=== PATIENT | female | born 1930 | race Asian ===

== ENCOUNTER 2018-03-31 22:05 | Inpatient (IN) | payer MEDICARE, OTHER ==
[~2018-03-31] VITALS: Ht 137.2 cm; Wt 49.4 kg
[~2018-03-31 22:05] MED LIST: DONE10TA8 PO; INDA2.5 PO; MEBROFENIN TC99M/MCL ISOTOPE 1 EA INJ INJ ONE; NIFE10 PO; OS500 PO; RANI150T7 PO; SIMV-260 PO; SITA25 PO
[2018-03-31] MEDS ORDERED: MIRT15 PO (22:41)
[2018-03-31 22:43] LABS: GLUCOSE,POINT OF CARE 199 MG/DL (70-110)
[2018-04-01 00:44] LABS: BASOPHILS % (AUTO) 0.3 % (0.0-2.0); EOSINOPHILS % (AUTO) 0 % (1.0-6.0); HEMATOCRIT 34.5 % (36-46); HEMOGLOBIN 11.4 g/dL (12.0-16.0); LYMPHOCYTES % (AUTO) 10.8 % (22.0-44.0); MEAN CORPUSCULAR HEMOGLOBIN 27.4 pg (26.0-34.0); MEAN CORPUSCULAR HGB CONC 32.9 G/dL (31.0-37.0); MEAN CORPUSCULAR VOLUME 83 fL (80-100); MONOCYTES # (AUTO) 0.2 K/uL (0.1-1.0); MONOCYTES % (AUTO) 2.3 % (2.0-9.0); NEUTROPHILS # (AUTO) 8.2 K/uL (1.8-7.7); PLATELET COUNT (AUTO) 236 K/uL (150-450); RED BLOOD CELL COUNT(AUTO) 4.15 MIL/uL (4.00-5.20); RED CELL DISTRIBUTION WIDTH 14.6 % (11.5-14.5)
[2018-04-01 00:46] LABS: NEUTROPHILS % (AUTO) 86.6 % (40.0-70.0)
[2018-04-01 00:55] LABS: CALCIUM, TOTAL 8.8 mg/dL (8.8-10.5); CREATININE 1.77 mg/dL (0.60-1.30); POTASSIUM 4.1 mmol/L (3.5-5.1)
[2018-04-01 01:01] LABS: ALBUMIN 3.9 g/dL (3.4-5.0); BILIRUBIN,TOTAL 0.4 mg/dL (0.1-1.0); TOTAL PROTEIN, SERUM 8.5 g/dL (6.4-8.2)
[2018-04-01] MEDS ORDERED: MAGNESIUM SULFATE 4 GM/WATER 100 ML IV PRN (04:30)
[2018-04-01] MEDS ORDERED: MAGNESIUM HYDROXIDE SUSPENSION 30 ML UDCUP PO PRN (04:30)
[2018-04-01] MEDS ORDERED: MAGNESIUM OXIDE 400 MG TABLET PO PRN (04:30)
[2018-04-01] MEDS ORDERED: DEXTROSE 50%-WATER 25 GM/50 ML SYRINGE IVP PRN ×2 (04:30→16:15)
[2018-04-01] MEDS ORDERED: BISACODYL 10 MG RECTAL RECTAL SUPPOSITORY PR PRN (04:30)
[2018-04-01] MEDS ORDERED: IPRATROPIUM BROMIDE 0.5 MG/2.5 ML NEB SOLUTION NEB PRN (04:30)
[2018-04-01] MEDS ORDERED: ZOLPIDEM TARTRATE 5 MG TABLET PO PRN (04:30)
[2018-04-01] MEDS ORDERED: INSULIN LISPRO 100 UNITS/ML SQ PRN ×2 (04:30→16:15)
[2018-04-01] MEDS ORDERED: HYDROCODONE/ACETAMINOPHEN 5-325 MG TABLET PO PRN (04:30)
[2018-04-01] MEDS ORDERED: MAGNESIUM SULFATE 2 GM/WATER 50 ML IV PRN (04:30)
[2018-04-01] MEDS ORDERED: ALBUTEROL SULFATE 2.5 MG/0.5 ML NEB SOLUTION NEB PRN (04:30)
[2018-04-01] MEDS ORDERED: POTASSIUM CHLORIDE 20 MEQ ER TABLET PO PRN (04:30)
[2018-04-01] MEDS ORDERED: MORPHINE SULFATE 4 MG/ML SYRINGE IVP PRN (04:30)
[2018-04-01] MEDS: SODIUM CHLORIDE 0.9% 1,000 ML IV SCH ×2 (04:36→15:29)
[2018-04-01] MEDS: ACETAMINOPHEN 325 MG TABLET PO PRN (05:04)
[2018-04-01] MEDS ORDERED: ONDANSETRON HCL 4 MG/2 ML VIAL IVP PRN (05:45)
[2018-04-01] MEDS ORDERED: HydrALAZINE HCL 20 MG/ML VIAL IVP PRN (05:45)
[2018-04-01] MEDS ORDERED: MORPHINE SULFATE 2 MG/ML SYRINGE IVP PRN (05:45)
[2018-04-01] MEDS ORDERED: HEPARIN SODIUM,PORCINE 5,000 UNITS/ML VIAL SQ SCH (08:00)
[2018-04-01] MEDS ORDERED: NIFEdipine 60 MG ER TABLET PO ONE (08:30)
[2018-04-01] MEDS ORDERED: PANTOPRAZOLE SODIUM 40 MG/VIAL IVP SCH (09:00)
[2018-04-01] MEDS ORDERED: NIFEdipine 10 MG CAPSULE PO SCH (09:00)
[2018-04-01] MEDS: HEPARIN SODIUM,PORCINE 5,000 UNITS/ML VIAL SQ SCH ×2 (09:01→20:41)
[2018-04-01] MEDS: RANITIDINE HCL 150 MG TABLET PO SCH ×2 (09:02→20:39)
[2018-04-01] MEDS: CALCIUM OYSTER SHELL 500 MG TABLET PO SCH (09:02)
[2018-04-01 09:18] LABS: GLUCOSE,POINT OF CARE 114 MG/DL (70-110)
[2018-04-01 10:16] LABS: BASOPHILS % (AUTO) 0.5 % (0.0-2.0); EOSINOPHILS % (AUTO) 0 % (1.0-6.0); HEMATOCRIT 35.6 % (36-46); HEMOGLOBIN 11.7 g/dL (12.0-16.0); LYMPHOCYTES # (AUTO) 2.4 K/uL (1.0-4.8); LYMPHOCYTES % (AUTO) 19.5 % (22.0-44.0); MEAN CORPUSCULAR HEMOGLOBIN 27.3 pg (26.0-34.0); MEAN CORPUSCULAR HGB CONC 32.9 G/dL (31.0-37.0); MEAN CORPUSCULAR VOLUME 83 fL (80-100); MONOCYTES # (AUTO) 1.1 K/uL (0.1-1.0); MONOCYTES % (AUTO) 8.7 % (2.0-9.0); NEUTROPHILS # (AUTO) 8.6 K/uL (1.8-7.7); NEUTROPHILS % (AUTO) 71.3 % (40.0-70.0); PLATELET COUNT (AUTO) 229 K/uL (150-450); RED CELL DISTRIBUTION WIDTH 14.4 % (11.5-14.5)
[2018-04-01 10:42] LABS: ALBUMIN 3.3 g/dL (3.4-5.0); BILIRUBIN,TOTAL 0.9 mg/dL (0.1-1.0); CALCIUM, TOTAL 8.8 mg/dL (8.8-10.5); CREATININE 1.36 mg/dL (0.60-1.30); POTASSIUM 3.6 mmol/L (3.5-5.1); TOTAL PROTEIN, SERUM 7.6 g/dL (6.4-8.2)
[2018-04-01 11:04] LABS: MAGNESIUM 2.3 mg/dL (1.80-2.40); THYROID STIMULATING HORMONE 0.57 uIU/mL (0.36-3.74)
[2018-04-01 13:08] LABS: GLUCOSE,POINT OF CARE 106 MG/DL (70-110)
[2018-04-01] MEDS ORDERED: NIFE60TA71 PO (16:13)
[2018-04-01] MEDS ORDERED: NIFE30TA5 PO (16:13)
[2018-04-01 17:53] LABS: GLUCOMETER DEV NAME(LOC) 5N 1P; GLUCOSE,POINT OF CARE 124 MG/DL (70-110)
[2018-04-01 19:40] VITALS: BP_SYST 103; BP_SYST 145; BP_DIAS 57; BP_DIAS 60
[2018-04-01] MEDS: MIRTAZAPINE 15 MG TABLET PO SCH (20:39)
[2018-04-01] MEDS: SIMVASTATIN 20 MG TABLET PO SCH (20:40)
[2018-04-01] MEDS ORDERED: INDAPAMIDE 2.5 MG TAB PO SCH (21:00)
[2018-04-02] VITALS (7 sets, daily range): BP systolic 125–150; BP diastolic 52–99
[2018-04-02] MEDS: SODIUM CHLORIDE 0.9% 1,000 ML IV SCH ×2 (05:57→10:16)
[2018-04-02 06:42] LABS: BASOPHILS % (AUTO) 0.1 % (0.0-2.0); EOSINOPHILS % (AUTO) 0 % (1.0-6.0); HEMATOCRIT 36.2 % (36-46); HEMOGLOBIN 11.9 g/dL (12.0-16.0); LYMPHOCYTES # (AUTO) 0.6 K/uL (1.0-4.8); LYMPHOCYTES % (AUTO) 5.4 % (22.0-44.0); MEAN CORPUSCULAR HEMOGLOBIN 27.5 pg (26.0-34.0); MEAN CORPUSCULAR HGB CONC 32.8 G/dL (31.0-37.0); MEAN CORPUSCULAR VOLUME 84 fL (80-100); MONOCYTES # (AUTO) 0.7 K/uL (0.1-1.0); MONOCYTES % (AUTO) 6.3 % (2.0-9.0); NEUTROPHILS # (AUTO) 10.4 K/uL (1.8-7.7); PLATELET COUNT (AUTO) 210 K/uL (150-450); RED BLOOD CELL COUNT(AUTO) 4.32 MIL/uL (4.00-5.20); RED CELL DISTRIBUTION WIDTH 14.3 % (11.5-14.5)
[2018-04-02 06:52] LABS: NEUTROPHILS % (AUTO) 88.2 % (40.0-70.0)
[2018-04-02 07:10] LABS: HEMOGLOBIN A1C 6.2 % (4.5-6.2)
[2018-04-02 07:38] LABS: GLUCOMETER DEV NAME(LOC) 5N 1P; GLUCOSE,POINT OF CARE 151 MG/DL (70-110)
[2018-04-02] MEDS: CALCIUM OYSTER SHELL 500 MG TABLET PO SCH (08:20)
[2018-04-02] MEDS: RANITIDINE HCL 150 MG TABLET PO SCH ×2 (08:20→20:50)
[2018-04-02] MEDS: HEPARIN SODIUM,PORCINE 5,000 UNITS/ML VIAL SQ SCH ×2 (08:20→20:50)
[2018-04-02 10:23] LABS: ANION GAP 9 mmol/L (8-16); CARBON DIOXIDE 26 mmol/L (22-29); CHLORIDE 110 mmol/L (98-107); CREATININE 1.68 mg/dL (0.60-1.30); GLOMERULAR FILTR. RATE CALC 29 mL/min (>60); GLUCOSE,RANDOM 130 mg/dL (70-110); POTASSIUM 3.2 mmol/L (3.5-5.1); SODIUM SERUM 145 mmol/L (136-145); UREA NITROGEN, BLOOD 27 mg/dL (7-18)
[2018-04-02 10:45] LABS: ALANINE AMINOTRANSFERASE 630 U/L (12-78); ALBUMIN 2.7 g/dL (3.4-5.0); ALKALINE PHOSPHATASE 168 U/L (46-116); BILIRUBIN,TOTAL 4.1 mg/dL (0.1-1.0); CHOL/HDL RATIO 1.6 (3.9-5.7); CHOLESTEROL 105 mg/dL (131-200); CREATINE KINASE, TOTAL 241 U/L (26-192); HDL CHOLESTEROL 65 mg/dL (40-60); LDL CHOL (CALC.) 31 mg/dL (0-130); PHOSPHORUS 1.5 mg/dL (2.5-4.9); THYROID STIMULATING HORMONE 0.28 uIU/mL (0.36-3.74); TOTAL PROTEIN, SERUM 6.7 g/dL (6.4-8.2); TRIGLYCERIDES 46 mg/dL (15-150)
[2018-04-02] MEDS: POTASSIUM CHL 10 MEQ/WATER 50 ML IV PRN ×4 (10:45→15:02)
[2018-04-02 10:48] LABS: ASPARTATE AMINOTRANSFERASE 1148 U/L (15-37)
[2018-04-02] MEDS: SIMVASTATIN 20 MG TABLET PO SCH (20:50)
[2018-04-02] MEDS: MIRTAZAPINE 15 MG TABLET PO SCH (20:54)
[2018-04-03] MEDS: ACETAMINOPHEN 325 MG TABLET PO PRN ×2 (00:19→16:46)
[2018-04-03 04:35] VITALS: BP 125/72
[2018-04-03 07:05] LABS: B-TYPE NATRIURETIC PEPTIDE 420 pg/mL (0-100)
[2018-04-03 07:27] LABS: GLUCOMETER DEV NAME(LOC) 5N 2S; GLUCOSE,POINT OF CARE 125 MG/DL (70-110)
[2018-04-03 07:28] LABS: GLUCOMETER DEV NAME(LOC) 5N 1P; GLUCOSE,POINT OF CARE 130 MG/DL (70-110)
[2018-04-03 07:28] LABS: GLUCOMETER DEV NAME(LOC) 5N 1P; GLUCOSE,POINT OF CARE 95 MG/DL (70-110)
[2018-04-03 07:28] LABS: GLUCOMETER DEV NAME(LOC) 5N 1P; GLUCOSE,POINT OF CARE 109 MG/DL (70-110)
[2018-04-03 07:28] LABS: GLUCOMETER DEV NAME(LOC) 5N 2S; GLUCOSE,POINT OF CARE 135 MG/DL (70-110)
[2018-04-03 07:41] LABS: ALANINE AMINOTRANSFERASE 401 U/L (12-78); ALBUMIN 2.7 g/dL (3.4-5.0); ALKALINE PHOSPHATASE 161 U/L (46-116); ANION GAP 11 mmol/L (8-16); ASPARTATE AMINOTRANSFERASE 318 U/L (15-37); BILIRUBIN,TOTAL 6.2 mg/dL (0.1-1.0); CALCIUM, TOTAL 8.3 mg/dL (8.8-10.5); CARBON DIOXIDE 25 mmol/L (22-29); CHLORIDE 109 mmol/L (98-107); CREATINE KINASE, TOTAL 200 U/L (26-192); CREATININE 2.27 mg/dL (0.60-1.30); GLOMERULAR FILTR. RATE CALC 20 mL/min (>60); GLUCOSE,RANDOM 105 mg/dL (70-110); POTASSIUM 3.5 mmol/L (3.5-5.1); SODIUM SERUM 145 mmol/L (136-145); UREA NITROGEN, BLOOD 34 mg/dL (7-18)
[2018-04-03 08:07] VITALS: BP 129/48
[2018-04-03] MEDS: HEPARIN SODIUM,PORCINE 5,000 UNITS/ML VIAL SQ SCH ×2 (08:28→20:13)
[2018-04-03] MEDS: CALCIUM OYSTER SHELL 500 MG TABLET PO SCH (08:28)
[2018-04-03] MEDS: RANITIDINE HCL 150 MG TABLET PO SCH ×2 (08:28→20:12)
[2018-04-03 12:38] VITALS: BP 150/64
[2018-04-03 16:50] VITALS: BP 149/59
[2018-04-03] MEDS: SODIUM CHLORIDE 0.45% 1,000 ML IV SCH (18:32)
[2018-04-03 19:28] VITALS: BP 125/60
[2018-04-03] MEDS: SIMVASTATIN 20 MG TABLET PO SCH (20:12)
[2018-04-03] MEDS: MIRTAZAPINE 15 MG TABLET PO SCH (23:25)
[2018-04-03 23:33] VITALS: BP 151/55
[2018-04-03] MEDS: POTASSIUM CHL 10 MEQ/WATER 50 ML IV PRN (23:52)
[2018-04-04 01:48] LABS: GLUCOSE, URINE (UA) NEGATIVE (NEGATIVE); KETONES,URINE NEGATIVE (NEGATIVE); LEUKOCYTE ESTERASE ,URINE NEGATIVE (NEGATIVE); NITRATE,URINE NEGATIVE (NEGATIVE); OCCULT BLOOD,URINE LARGE (NEGATIVE); PROTEIN,URINE SEE CONFIRM (NEGATIVE)
[2018-04-04 01:49] LABS: APPEARANCE,URINE HAZY (CLEAR); BILIRUBIN,URINE PRELIM. POSITIVE (NEGATIVE); CREATININE,URINE RANDOM 64.4 mg/dL (30.0-125.0); SODIUM,URINE RANDOM 89 mmol/l (20-110); UREA NITROGEN,URINE RANDOM 677 mg/dL (350-1000)
[2018-04-04] MEDS: POTASSIUM CHL 10 MEQ/WATER 50 ML IV PRN (01:49)
[2018-04-04 02:51] LABS: BACTERIA,URINE Rare /HPF (None Seen); SULFOSALICYLIC ACID,URINE 1+ (Negative); WBC,URINE 0-2 /HPF (0-5)
[2018-04-04 03:50] VITALS: BP 141/59
[2018-04-04 07:27] VITALS: BP 138/60
[2018-04-04 08:19] LABS: ALBUMIN 2.6 g/dL (3.4-5.0); BILIRUBIN,TOTAL 4.6 mg/dL (0.1-1.0); CALCIUM, TOTAL 8.4 mg/dL (8.8-10.5); CREATININE 1.65 mg/dL (0.60-1.30); MAGNESIUM 2.4 mg/dL (1.80-2.40); PHOSPHORUS 1.5 mg/dL (2.5-4.9); POTASSIUM 3.9 mmol/L (3.5-5.1); TOTAL PROTEIN, SERUM 7.1 g/dL (6.4-8.2)
[2018-04-04] MEDS: CALCIUM OYSTER SHELL 500 MG TABLET PO SCH (09:03)
[2018-04-04] MEDS: RANITIDINE HCL 150 MG TABLET PO SCH (09:04)
[2018-04-04] MEDS: HEPARIN SODIUM,PORCINE 5,000 UNITS/ML VIAL SQ SCH (09:04)
[2018-04-04 10:18] LABS: GLUCOMETER DEV NAME(LOC) 5N 1P; GLUCOSE,POINT OF CARE 100 MG/DL (70-110)
[2018-04-04 10:19] LABS: GLUCOMETER DEV NAME(LOC) 5N 1P; GLUCOSE,POINT OF CARE 87 MG/DL (70-110)
[2018-04-04] MEDS ORDERED: POTASSIUM PHOS/SODIUM PHOS MIXTURE 1 POWDER PACKET PO SCH (10:45)
[2018-04-04 11:19] VITALS: BP 151/63
[2018-04-04 11:59] LABS: GLUCOMETER DEV NAME(LOC) 5N 2S; GLUCOSE,POINT OF CARE 93 MG/DL (70-110)
[2018-04-04 11:59] LABS: GLUCOMETER DEV NAME(LOC) 5N 2S; GLUCOSE,POINT OF CARE 86 MG/DL (70-110)
[2018-04-04] MEDS: SODIUM CHLORIDE 0.45% 1,000 ML IV SCH (13:35)
[2018-04-05 02:44] LABS: GLUCOMETER DEV NAME(LOC) 5N 1P; GLUCOSE,POINT OF CARE 91 MG/DL (70-110)
== END 2018-04-04 15:25 | disposition home or self-care (01) | DRG 444 ==
LOC: EMS 22:06 → 5N 04-01 13:45
PROVIDERS: ADMIT Internal Medicine; ATTEND Internal Medicine
DX: K80.20 Calculus of gallbladder without cholecystitis without obstruction (principal); N17.0 Acute kidney failure with tubular necrosis; R80.9 Proteinuria, unspecified; N18.9 Chronic kidney disease, unspecified; K21.9 Gastro-esophageal reflux disease without esophagitis; I48.91 Unspecified atrial fibrillation; I12.9 Hypertensive chronic kidney disease with stage 1 through stage 4 chronic kidney disease, or unspecified chronic kidney disease; F03.90 Unspecified dementia, unspecified severity, without behavioral disturbance, psychotic disturbance, mood disturbance, and anxiety; E11.22 Type 2 diabetes mellitus with diabetic chronic kidney disease; E78.5 Hyperlipidemia, unspecified; E83.39 Other disorders of phosphorus metabolism; E78.00 Pure hypercholesterolemia, unspecified; F32.9 Major depressive disorder, single episode, unspecified; M54.9 Dorsalgia, unspecified; R31.9 Hematuria, unspecified; I44.7 Left bundle-branch block, unspecified; E11.65 Type 2 diabetes mellitus with hyperglycemia; M19.90 Unspecified osteoarthritis, unspecified site; M81.0 Age-related osteoporosis without current pathological fracture; Z88.8 Allergy status to other drugs, medicaments and biological substances; Z79.899 Other long term (current) drug therapy
CPT/HCPCS: 74019; 76705; 76770; 78226; 80074; 82306; 82570; 83036; 83735; 84100; 84132; 84300; 84443; 84540; 93005; 93306; 99285; A9537; J1644; J3480; J7030